=== PATIENT | female | born 2000 ===

== ENCOUNTER 2023-06-11 07:01 | Emergency (ER) | payer SELFPAY ==
[2023-06-11] MEDS ORDERED: Ondansetron 4 MG Tab.DIS PO ONE (07:15)
[2023-06-11 07:37] LABS: BILIRUBIN,URINE NEGATIVE (NEGATIVE); COLOR,URINE ORANGE; GLUCOSE,URINE 100 mg/dL (NEGATIVE); KETONES,URINE 15 mg/dL (NEGATIVE); LEUKOCYTE ESTERASE,URINE TRACE (NEGATIVE); NITRITE,URINE POSITIVE (NEGATIVE); OCCULT BLOOD,URINE NEGATIVE (NEGATIVE); PH,URINE 5.5 (5.0-8.0); PROTEIN,URINE TRACE mg/dL (NEGATIVE)
[2023-06-11 07:41] LABS: APPEARANCE,URINE HAZY
[2023-06-11 07:50] LABS: BACTERIA,URINE FEW (NEGATIVE); EPITHELIAL CELLS,URINE FEW (NONE-FEW); MUCUS,URINE LIGHT (NONE-MOD); WBC,URINE 0-4 (0-5/HPF)
== END 2023-06-11 08:06 | disposition home or self-care (01) ==
LOC: MW.ED 07:01
DX: R11.10 Vomiting, unspecified (principal); N39.0 Urinary tract infection, site not specified
CPT/HCPCS: 81001; 81025; 99284; A9270; 99283

== ENCOUNTER 2025-07-08 03:13 | Emergency (ER) | payer SELFPAY ==
[2025-07-08] MEDS ORDERED: Sodium Chloride 0.9% 10 ML Syringe FLUSH PRN (03:15)
[2025-07-08] MEDS ORDERED: Sodium Chloride 0.9% 2.5 ML Syringe FLUSH PRN (03:15)
[2025-07-08] MEDS: Ondansetron 4 MG/2 ML SDV IVPUSH ONE (03:30)
[2025-07-08 03:34] LABS: MEAN PLATELET VOLUME 9.9 fL (9.4-12.3); NRBC ABSOLUTE 0.00 K/uL (0.00-0.02); NRBC PERCENT 0.0 /100WBC (0.0-0.2); PLATELET COUNT,PLT 235 K/uL (150-400); RED BLOOD CELL COUNT 4.17 M/uL (4.10-5.30); WHITE BLOOD CELL COUNT,WBC 8.23 K/uL (3.9-11.3)
[2025-07-08 03:55] LABS: A/G RATIO 0.9 (0.9-1.6); ALANINE AMINOTRANSFERASE,ALT 19.0 IU/L (14-63); ASPARTATE AMNIOTRANSFERASE,AST 18.0 IU/L (15-37); BILIRUBIN TOTAL 0.8 mg/dL (0.2-1.0); BLOOD UREA NITROGEN,BUN 14.0 mg/dL (7.0-18.0); CARBON DIOXIDE,CO2 21.3 mmol/L (21.0-32.0); CHLORIDE,CL 104.0 mmol/L (98-107); CREATININE 0.7 mg/dL (0.6-1.0); EST CRCL DRUG DOSING (CG) 109.59 mL/min; GLUCOSE RANDOM 81.0 mg/dL (74-106); POTASSIUM,K 3.5 mmol/L (3.5-5.1); PROTEIN TOTAL,TP 7.6 g/dL (6.4-8.2); SODIUM,NA 138.0 mmol/L (136-145)
[2025-07-08 03:56] LABS: ESTIMATED GFR 122.0 mL/min (>60)
[2025-07-08 04:09] LABS: SEG NEUTROPHILS ABSOLUTE MAN 6.17 K/uL (1.80-7.70); SEG NEUTROPHILS PERCENT MAN 75 % (41-71)
[2025-07-08 04:10] LABS: EOSINOPHILS ABSOLUTE MAN 0.08 K/uL (0.00-0.45); EOSINOPHILS PERCENT MAN 1 % (0-6); LYMPHOCYTES ABSOLUTE MAN 1.48 K/uL (1.00-4.80); LYMPHOCYTES PERCENT MAN 18 % (24-44); MONOCYTES ABSOLUTE MAN 0.49 K/uL (0.00-0.80); MONOCYTES PERCENT MAN 6 % (0-8)
== END 2025-07-08 04:35 | disposition home or self-care (01) ==
LOC: MW.ED 03:13
DX: A05.9 Bacterial foodborne intoxication, unspecified (principal); E86.0 Dehydration; R11.2 Nausea with vomiting, unspecified; R10.9 Unspecified abdominal pain; R19.7 Diarrhea, unspecified
CPT/HCPCS: 36415; 80053; 83690; 83735; 84703; 85025; 96361; 96374; 99284; A9270; J2405; J7030